=== PATIENT | female | born 1985 | race Caucasian/White ===

== ENCOUNTER 2017-01-30 23:09 | Emergency (ER) | payer OTHER ==
[2017-01-30 23:35] LABS: BASO % 0.3 % (0.1-1.2); EOS # 0.2 10_X3_uL (0.0-0.4); EOS % 1.9 % (0.7-5.8); GRAN # 6.8 10_X3_uL (1.6-6.1); HEMATOCRIT 41.7 % (34-45); HEMOGLOBIN 13.8 g/dL (11.2-15.7); LYMPH # 4.9 10_X3_uL (1.2-3.7); LYMPH % 38.2 % (19.3-51.7); MEAN CORPUSCULAR HEMOGLOBIN 30.7 pg (27.0-33.0); MEAN CORPUSCULAR HGB CONC 33.1 g/dL (32.0-36.0); MEAN CORPUSCULAR VOLUME 92.9 fL (79-95); MEAN PLATELET VOLUME 10.3 fl (7.5-11.5); MONO # 0.9 10_X3_uL (0.2-0.9); MONO % 6.6 % (4.7-12.5); PLATELET COUNT 264 x10_3/uL (182-369); RED BLOOD COUNT 4.49 x10_6/uL (3.9-5.2); RED CELL DISTRIBUTION WIDTH 13.1 % (11.7-14.4); WHITE BLOOD COUNT 12.9 x10_3/uL (4.0-10.0)
[2017-01-30 23:55] LABS: ALKALINE PHOSPHATASE 48 U/L (50-136); ALT/SGPT 27 U/L (3.5-33.9); AMYLASE 75 U/L (15.62-74.58); AST/SGOT 18 U/L (7.04-26.96); BILIRUBIN,TOTAL 0.23 mg/dL (0.0-1.0); BLOOD UREA NITROGEN 8 mg/dL (7-18); CALCIUM 9.2 mg/dL (8.7-10.7); CARBON DIOXIDE 30 mmol/L (21-32); CREATININE 0.6 mg/dL (0.6-1.3); GLUCOSE,RANDOM 78 mg/dL (70-99); LIPASE 40 U/L (6.75-60.75); POTASSIUM 3.9 mmol/L (3.5-5.1); SODIUM 140 mmol/L (136-145); TOTAL PROTEIN 6.3 gm/dL (6.4-8.2)
== END 2017-01-31 02:25 | disposition home or self-care (01) ==
LOC: ER 23:09
PROVIDERS: General Practice
DX: R07.89 Other chest pain (principal); K21.9 Gastro-esophageal reflux disease without esophagitis; R10.13 Epigastric pain; F19.10 Other psychoactive substance abuse, uncomplicated; J44.9 Chronic obstructive pulmonary disease, unspecified; Z79.82 Long term (current) use of aspirin; Z79.899 Other long term (current) drug therapy; Z88.5 Allergy status to narcotic agent
CPT/HCPCS: 36415; 71010; 80053; 81025; 82150; 83690; 85025; 85379; 93005; 99283-25